=== PATIENT | male | born 1955 | race Caucasian/White ===

== ENCOUNTER → 2024-12-21 07:55 | Outpatient (REF) | payer MEDICARE, SELFPAY | LOC: MRI 3T 07:55 | PROVIDERS: ATTENDING PHYSICIAN Radiology Radiation Oncology; PRIMARYCARE PHYSICIAN Internal Medicine | DX: C61 Malignant neoplasm of prostate (principal) | CPT/HCPCS: 72197; A9575 ==

== ENCOUNTER 2024-12-23 09:34 | Outpatient (RCR) | payer MEDICARE, SELFPAY | END 2024-12-29 10:17 | disposition home or self-care (01) | LOC: RST 09:34 | PROVIDERS: ATTENDING PHYSICIAN Psychiatry & Neurology Neurology | DX: G20.A1 Parkinson's disease without dyskinesia, without mention of fluctuations (principal); R13.10 Dysphagia, unspecified | CPT/HCPCS: 92526; 92610 ==